=== PATIENT | female | born 1965 | race Caucasian/White ===

== ENCOUNTER 2019-07-17 18:29 | Emergency (ER) | payer OTHER ==
--- NOTE | 2019-07-17 19:59 | RAD REPORT ---
EXAM DESCRIPTION: RAD - Elbow Right 3 View - 07/17/2019 7:43 pm CLINICAL HISTORY: PAIN COMPARISON: No comparisons FINDINGS: No bone or joint abnormality.
--- NOTE | 2019-07-17 19:59 | RAD REPORT ---
EXAM DESCRIPTION: RAD - Forearm Right - 07/17/2019 7:43 pm CLINICAL HISTORY: PAIN COMPARISON: No comparisons FINDINGS: No bone or joint abnormality is detected.
--- NOTE | 2019-07-17 20:00 | RAD REPORT ---
EXAM DESCRIPTION: RAD - Hand Right 3 View - 07/17/2019 7:44 pm CLINICAL HISTORY: PAIN COMPARISON: No comparisons FINDINGS: No bone or joint abnormality is detected. Radiocarpal arthritic changes.
--- NOTE | 2019-07-17 20:01 | RAD REPORT ---
EXAM DESCRIPTION: RAD - Knee Right 3 View - 07/17/2019 7:47 pm CLINICAL HISTORY: PAIN COMPARISON: No comparisons FINDINGS: Prominent arthritic changes are present particularly in the medial joint compartment. No a cute fracture or dislocation seen. Osseous loose body is seen in the suprapatellar joint space.
--- NOTE | 2019-07-17 20:34 | ER ---
Nurse's Notes [facility] Name: Luda Soares Age: 54 yrs Sex: Female : 1965 Arrival Date: 07/17/2019 Time: 18:32 Bed 12 Private MD: Diagnosis: Contusion of right knee;Contusion of right elbow;Contusion of right forearm;Contusion of right hand Presentation: 07/17 18:51 Presenting complaint: Patient states: she fell in our parking lot yesterday in the front and landed on her right knee and right hand. c/o right knee pain/swelling and right hand/forearm/elbow pain, headache. "I don't think I hit my head but it happened so fast.". Transition of care: patient was not received from another setting of care. Onset of symptoms was July 16, 2019. Risk Assessment: Do you want to hurt yourself or someone else? Patient reports no desire to harm self or others. Care prior to arrival: None. 18:51 Method Of Arrival: Ambulatory sv 18:51 Acuity: CHARU 4 sv 20:35 Initial Sepsis Screen: Does the patient meet any 2 criteria? No. Patient's initial jd3 sepsis screen is negative. Does the patient have a suspected source of infection? No. Patient's initial sepsis screen is negative. Triage Assessment: 18:54 General: Appears in no apparent distress. uncomfortable, well developed, Behavior is sv calm, cooperative, appropriate for age. Pain: Complains of pain in right arm, right quadriceps, right knee and right sifuentes. Neuro: Level of Consciousness is awake, alert, obeys commands, Gait is steady. Respiratory: Respiratory effort is even, unlabored, Respiratory pattern is regular, symmetrical. 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 - Social history:: Smoking status: unknown. - Ebola Screening: : Patient negative for fever greater than or equal to 101.5 degrees Fahrenheit, and additional compatible Ebola Virus Disease symptoms. Screenin:34 Abuse screen: Denies threats or abuse. Nutritional screening: No deficits noted. jd3 Tuberculosis screening: No symptoms or risk factors identified. Fall Risk No IV (0 pts). Ambulatory Aid- None/Bed Rest/Nurse Assist (0 pts). Gait- Normal/Bed Rest/Wheelchair (0 pts) Mental Status- Oriented to own ability (0 pts). Total Reynolds Fall Scale indicates No Risk (0-24 pts). Assessment: 20:22 General: Appears in no apparent distress. uncomfortable, Behavior is calm, cooperative, jd3 appropriate for age. Pain: Complains of pain in right wrist and right hand and right knee Quality of pain is described as aching, tender. Neuro: Level of Consciousness is awake, alert, obeys commands, Oriented to person, place, time, situation. Cardiovascular: Capillary refill < 3 seconds Patient's skin is warm and dry. Respiratory: Airway is patent Respiratory effort is even, unlabored, Respiratory pattern is regular, symmetrical. GI: No signs and/or symptoms were reported involving the gastrointestinal system. : No signs and/or symptoms were reported regarding the genitourinary system. EENT: No signs and/or symptoms were reported regarding the EENT system. Derm: Skin is intact, Skin is dry, Skin is normal, Skin temperature is warm. Musculoskeletal: Circulation, motion, and sensation intact. Range of motion: intact in all extremities. 20:47 Reassessment: Patient appears in no apparent distress at this time. Patient and/or jd3 family updated on plan of care and expected duration. Pain level reassessed. Patient is alert, oriented x 3, equal unlabored respirations, skin warm/dry/pink. reported understanding of discharge instructions. even and steady gait upon discharge. Vital Signs: 18:53 BP 133 / 80; Pulse 90; Resp 16; Pulse Ox 96% ; Weight 113.4 kg; Height 5 ft. 9 in. sv (175.26 cm); 20:46 BP 149 / 77; Pulse 92; Resp 17 S; Pulse Ox 97% on R/A; jd3 18:53 Body Mass Index 36.92 (113.40 kg, 175.26 cm) sv ED Course: 18:32 Patient arrived in ED. as 18:53 Triage completed. sv 18:54 Arm band placed on. sv 19:44 Knee Right 3 View XRAY In Process Unspecified. EDMS 19:44 Hand Right 3 View XRAY In Process Unspecified. EDMS 19:44 Elbow Right 3 View XRAY In Process Unspecified. EDMS 19:44 Forearm Right XRAY In Process Unspecified. EDMS 20:14 oJse Moura MD is Attending Physician. tw4 20:18 Chalo Acharya, RN is Primary Nurse. jd3 20:35 Patient has correct armband on for positive identification. Bed in low position. Call jd3 light in reach. Side rails up X 1. 20:35 No provider procedures requiring assistance completed. Patient did not have IV access jd3 during this emergency room visit. Administered Medications: 20:46 Drug: Motrin 800 mg Route: PO; jd3 20:46 Follow up: Response: Medication administered at discharge. jd3 Outcome: 20:33 Discharge ordered by MD. tw4 20:47 Discharged to home ambulatory. jd3 20:47 Condition: stable 20:47 Discharge instructions given to patient, Instructed on discharge instructions, follow up and referral plans. medication usage, Demonstrated understanding of instructions, follow-up care, medications, Prescriptions given X 1. 20:48 Patient left the ED. jd3 Signatures: Dispatcher [employer] EDMO Saray Leon RN RN sv Martinez, Amelia as Chalo Acharya, FIGUEROA RN j Jose Moura MD MD tw4 Corrections: (The following items were deleted from the chart) 18:57 18:51 Presenting complaint: Patient states: falling in our parking lot yesterday in the front and landed on her right knee and right hand. c/o right knee pain/swelling and right hand/forearm/elbow pain, headache. "I don't think I hit my head but it happened so fast."
--- NOTE | 2019-07-17 20:34 | EDPHYS ---
Physician Documentation [facility] Name: Luda Soares Age: 54 yrs Sex: Female : 1965 Arrival Date: 07/17/2019 Time: 18:32 Bed 12 Private MD: ED Physician Jose Moura HPI: 07/18 06:28 This 54 yrs old Female presents to ER via Ambulatory with complaints of Knee tw4 Pain, Hand Pain. 06:28 Details of fall: The patient fell from an upright position, while standing. Severity of tw4 symptoms: At their worst the symptoms were moderate, in the emergency department the symptoms are unchanged. The patient has not experienced similar symptoms in the past. 06:28 Onset: The symptoms/episode began/occurred 3 day(s) ago. Associated injuries: The tw4 patient sustained right knee and anterior aspect of right ankle, heel of right hand, right elbow and palmar aspect of right forearm, painful injury. 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 - Social history:: Smoking status: unknown. - Ebola Screening: : Patient negative for fever greater than or equal to 101.5 degrees Fahrenheit, and additional compatible Ebola Virus Disease symptoms. ROS: 07/18 06:28 Constitutional: Negative for fever, chills, and weight loss, Eyes: Negative for injury, tw4 pain, redness, and discharge, Cardiovascular: Negative for chest pain, palpitations, and edema, Respiratory: Negative for shortness of breath, cough, wheezing, and pleuritic chest pain, Abdomen/GI: Negative for abdominal pain, nausea, vomiting, diarrhea, and constipation, Back: Negative for injury and pain. MS/extremity: Positive for contusion. Exam: 06:28 Constitutional: This is a well developed, well nourished patient who is awake, alert, tw4 and in no acute distress. Head/Face: Normocephalic, atraumatic. Chest/axilla: Normal chest wall appearance and motion. Nontender with no deformity. No lesions are appreciated. Cardiovascular: Regular rate and rhythm with a normal S1 and S2. No gallops, murmurs, or rubs. Normal PMI, no JVD. No pulse deficits. Respiratory: Lungs have equal breath sounds bilaterally, clear to auscultation and percussion. No rales, rhonchi or wheezes noted. No increased work of breathing, no retractions or nasal flaring. Abdomen/GI: Soft, non-tender, with normal bowel sounds. No distension or tympany. No guarding or rebound. No evidence of tenderness throughout. Back: No spinal tenderness. No costovertebral tenderness. Full range of motion. 06:28 Musculoskeletal/extremity: Extremities: noted in the right knee: ecchymosis, pain, swelling, tenderness, abrasion, bite, deformity, erythema, laceration, puncture, rash, noted in the right antecubital area, dorsal aspect of right forearm, right elbow and palmar aspect of right forearm: contusion, pain, swelling, no evidence of abrasion, bite, deformity, ecchymosis, laceration, puncture. Vital Signs: 07/17 18:53 BP 133 / 80; Pulse 90; Resp 16; Pulse Ox 96% ; Weight 113.4 kg; Height 5 ft. 9 in. sv (175.26 cm); 20:46 BP 149 / 77; Pulse 92; Resp 17 S; Pulse Ox 97% on R/A; jd3 18:53 Body Mass Index 36.92 (113.40 kg, 175.26 cm) sv MDM: 20:14 Patient medically screened. tw4 07/18 06:28 Differential diagnosis: abrasion, contusion, multiple trauma, sprain, strain. Data tw4 reviewed: vital signs, nurses notes. Data reviewed: radiologic studies, plain films. Data interpreted: Pulse oximetry: Interpretation: normal. Counseling: I had a detailed discussion with the patient and/or guardian regarding: the historical points, exam findings, and any diagnostic results supporting the discharge/admit diagnosis, radiology results. Special discussion: I discussed with the patient/guardian in detail that at this point there is no indication for admission to the hospital. It is understood, however, that if the symptoms persist or worsen the patient needs to return immediately for re-evaluation. 07/17 18:56 Order name: Knee Right 3 View XRAY; Complete Time: 20:25 sv 07/17 20:26 Interpretation: No acute disease. tw4 07/17 18:56 Order name: Hand Right 3 View XRAY; Complete Time: 20:26 sv 07/17 20:26 Interpretation: No acute disease. tw4 07/17 18:56 Order name: Elbow Right 3 View XRAY; Complete Time: 20:26 sv 07/17 20:26 Interpretation: No acute disease. tw4 07/17 18:56 Order name: Forearm Right XRAY; Complete Time: 20:26 sv 07/17 20:26 Interpretation: No acute disease. tw4 Administered Medications: 07/17 20:46 Drug: Motrin 800 mg Route: PO; jd3 20:46 Follow up: Response: Medication administered at discharge. jd3 Disposition: 07/17/19 20:33 Discharged to Home. Impression: Contusion of right knee, Contusion of right elbow, Contusion of right forearm, Contusion of right hand. - Condition is Stable. - Discharge Instructions: Contusion. - Prescriptions for Ibuprofen 800 mg Oral Tablet - take 1 tablet by ORAL route every 8 hours As needed take with food; 30 tablet. - Medication Reconciliation Form, Thank You Letter, Antibiotic Education, Prescription Opioid Use form. - Follow up: Private Physician; When: Upon discharge from the Emergency Department; Reason: If symptoms return, Recheck today's complaints, Continuance of care. - Problem is new. - Symptoms have improved. Signatures: Dispatcher [employer] EDSaray Molina RN RN sv Davies, Jonathon, RN RN jd3 Wadley, Terrence, MD MD tw4 Corrections: (The following items were deleted from the chart) 20:48 20:33 07/17/2019 20:33 Discharged to Home. Impression: Contusion of right knee; jd3 Contusion of right elbow; Contusion of right forearm; Contusion of right hand. Condition is Stable. Forms are Medication Reconciliation Form, Thank You Letter, Antibiotic Education, Prescription Opioid Use. Follow up: Private Physician; When: Upon discharge from the Emergency Department; Reason: If symptoms return, Recheck today's complaints, Continuance of care. Problem is new. Symptoms have improved. tw4 07/18 06:30 06:28 Onset: The symptoms/episode began/occurred today, tw4 06:30 06:28 Associated injuries: The patient sustained injury to the head, tw4 tw4
[2019-07-17] MEDS ORDERED: IBUPROFEN 400 MG TAB ONE (20:43)
[2019-07-17 22:37] VITALS: BP 149/77; O2SAT 97
== END 2019-07-17 20:48 | disposition home or self-care (01) ==
LOC: ER 18:29
DX: S80.01XA Contusion of right knee, initial encounter (principal); S50.01XA Contusion of right elbow, initial encounter; S50.11XA Contusion of right forearm, initial encounter; S60.221A Contusion of right hand, initial encounter; W19.XXXA Unspecified fall, initial encounter; Y93.89 Activity, other specified; Y92.9 Unspecified place or not applicable; Z88.5 Allergy status to narcotic agent
CPT/HCPCS: 99283